=== PATIENT | female | born 1990 | race African-American/Black ===

== ENCOUNTER 2018-03-08 12:57 | Inpatient (IN) | payer OTHER, MEDICAID ==
[2018-03-08 15:28] LABS: ADD MAN DIFF? NO
[2018-03-08 15:31] LABS: WHITE BLOOD COUNT 10.7 10^3/ul (4.8-10.8)
[2018-03-08 15:31] LABS: BASOPHILS % 0.4 % (0.0-2.0); EOSINOPHILS % 0.4 % (0.0-7.0); HEMATOCRIT 36.2 % (37.0-47.0); HEMOGLOBIN 11.8 g/dl (12.0-16.0); LYMPHOCYTES # 1.9 10^3/ul (0.8-2.9); LYMPHOCYTES % 17.3 % (15.0-51.0); MEAN CORPUSCULAR HEMOGLOBIN 27.3 pg (29.0-33.0); MEAN CORPUSCULAR HGB CONC 32.6 g/dl (32.0-37.0); MEAN CORPUSCULAR VOLUME 83.6 fl (82.0-101.0); MONOCYTE # 0.4 10^3/ul (0.3-0.9); MONOCYTES % 4.1 % (0.0-11.0); NEUTROPHIL # 8.3 10^3/ul (1.6-7.5); NEUTROPHILS % 77.2 % (39.0-77.0); PLATELET COUNT 232 10^3/UL (140-415); RED BLOOD COUNT 4.33 10^6/ul (4.20-5.40); RED CELL DISTRIBUTION WIDTH 13.7 % (11.5-14.5)
[2018-03-08 15:49] LABS: ALANINE AMINOTRANSFERASE 20 IU/L (13-69); ALBUMIN 3.4 g/dl (3.3-4.9); ALBUMIN/GLOBULIN RATIO 1.03; ALKALINE PHOSPHATASE 155 IU/L (42-121); ANION GAP 12 (8-16); ASPARTATE AMINO TRANSFERASE 12 IU/L (15-46); BILIRUBIN,INDIRECT 0.1 mg/dl (0-1.1); BILIRUBIN,TOTAL 0.1 mg/dl (0.2-1.3); BLOOD UREA NITROGEN 6 mg/dl (7-20); CALCIUM 9.1 mg/dl (8.4-10.2); CARBON DIOXIDE 23 mmol/L (21-31); CHLORIDE 108 mmol/L (97-110); CREATININE 0.77 mg/dl (0.44-1.00); GLUCOSE 73 mg/dl (70-220); SODIUM 139 mmol/L (135-144); TOTAL PROTEIN 6.7 g/dl (6.1-8.1); URIC ACID 6.3 mg/dl (3.1-7.9)
[2018-03-08 16:11] LABS: ADD UMIC YES; UR ASCORBIC ACID NEGATIVE (NEGATIVE); UR BILIRUBIN (Dip) NEGATIVE (NEGATIVE); UR BLOOD (Dip) NEGATIVE (NEGATIVE); UR CLARITY CLEAR (CLEAR); UR COLOR STRAW (YELLOW); UR GLUCOSE (Dip) NEGATIVE (NEGATIVE); UR KETONES (Dip) NEGATIVE (NEGATIVE); UR LEUKOCYTE ESTERASE (Dip) 2+ Leu/ul (NEGATIVE); UR NITRITE (Dip) NEGATIVE (NEGATIVE); UR RBC 0 /HPF (0-5); UR SPECIFIC GRAVITY (Dip) 1.005 (1.003-1.030); UR SQUAMOUS EPITHELIAL CELL FEW /HPF (FEW); UR TOTAL PROTEIN (Dip) NEGATIVE (NEGATIVE); UR UROBILINOGEN (Dip) NEGATIVE (NEGATIVE); UR WBC 2 /HPF (0-5)
[2018-03-08] MEDS ORDERED: METHYLERGONOVINE 0.2 MG INJ IM (19:00)
[2018-03-08] MEDS ORDERED: CARBOPROST 250 MCG INJ IM (19:00)
[2018-03-08] MEDS ORDERED: MISOPROSTOL 200 MCG TAB PR (19:00)
[2018-03-08] MEDS ORDERED: OXYTOCIN 30 UNITS/LR 500 ML IV (19:00)
[2018-03-08] MEDS: LACTATED RINGER'S 1,000 ML IV ×2 (19:06→20:49)
[2018-03-08 19:26] LABS: HEPATITIS B SURFACE ANTIGEN NEGATIVE (NEGATIVE)
[2018-03-08 19:45] LABS: HIV 1&2 ANTIBODY NEGATIVE (NEGATIVE)
[2018-03-08] MEDS: MAGNESIUM SULFATE 3 GM in DEXTROSE 5% 100 ML IVPB (20:49)
[2018-03-08] MEDS: MAGNESIUM SULFATE 20 GM/500 ML 500 ML IV (21:29)
[2018-03-09] MEDS: LACTATED RINGER'S 1,000 ML IV ×3 (07:05→19:45)
[2018-03-09 07:42] LABS: MAGNESIUM 3.6 mg/dl (1.7-2.5)
[2018-03-09 09:23] LABS: INR 0.94; PROTIME 12.7 Sec (11.9-14.9)
[2018-03-09 09:24] LABS: PARTIAL THROMBOPLASTIN TIME 30.3 Sec (25.0-35.0)
[2018-03-09 10:34] LABS: AMPHETAMINE/METHAMPHETAMINE Negative (NEGATIVE); BARBITURATES Negative (NEGATIVE); BENZODIAZEPINES Negative (NEGATIVE); CANNABINOIDS Negative (NEGATIVE); COCAINE Negative (NEGATIVE); OPIATES Negative (NEGATIVE)
[2018-03-09] MEDS ORDERED: EPHEDrine SULFATE 50 MG/5 ML SYG (12:28)
[2018-03-09] MEDS ORDERED: FENTAnyl 50 MCG/ML VIAL (12:29)
[2018-03-09] MEDS ORDERED: morphine SULFATE/PF (10 MG/10 ML) INJ (12:29)
[2018-03-09] MEDS ORDERED: BUPIVACAINE 0.75%/DEXT (SPINAL) 2 ML INJ (13:24)
[2018-03-09] MEDS ORDERED: PHENYLephrine (100 MCG/ML) 5ML SYG (13:31)
[2018-03-09] MEDS ORDERED: ONDANSETRON 4 MG INJ (13:33)
[2018-03-09] MEDS ORDERED: DEXAMETHASONE 4 MG/ML 1 ML INJ (13:33)
[2018-03-09] MEDS ORDERED: METHYLENE BLUE 1% 10 ML INJ (14:08)
[2018-03-09] MEDS: METHYLENE BLUE 1% 10 ML INJ TOP (14:30)
[2018-03-09 14:58] LABS: RAPID PLASMA REAGIN NONREACTIVE (NR)
[2018-03-09] MEDS ORDERED: ONDANSETRON 4 MG INJ IV (15:00)
[2018-03-09] MEDS ORDERED: ZOLPIDEM 5 MG TAB PO (15:00)
[2018-03-09] MEDS ORDERED: HYDROmorphONE 0.5 MG/0.5 ML SYG IV (15:00)
[2018-03-09] MEDS ORDERED: NALOXONE (0.4 MG/ML) INJ IV (15:00)
[2018-03-09] MEDS: CEFAZOLIN 2 GM/50 ML (PMX) 50 ML IV ×2 (15:17→21:41)
[2018-03-09] MEDS: HYDROmorphONE 0.5 MG/0.5 ML SYG IV (15:23)
[2018-03-09] MEDS: AZITHROMYCIN 500MG/NS (PMX) 250 ML IVPB (16:12)
[2018-03-09] MEDS: LABETALOL 200 MG TAB PO ×2 (16:12→22:01)
[2018-03-09] MEDS: OXYTOCIN 30 UNITS/LR 500 ML IV (17:27)
[2018-03-09] MEDS: LABETALOL HCL 20MG INJ IV (17:49)
[2018-03-09 19:54] LABS: MAGNESIUM 3.4 mg/dl (1.7-2.5)
[2018-03-09] MEDS ORDERED: OXYTOCIN 30 UNITS/LR 500 ML IV (20:00)
[2018-03-09] MEDS ORDERED: CARBOPROST 250 MCG INJ IM (20:00)
[2018-03-09] MEDS ORDERED: MISOPROSTOL 200 MCG TAB PR (20:00)
[2018-03-09] MEDS ORDERED: HYDROCODONE/APAP (5/325) TAB PO (20:00)
[2018-03-09] MEDS ORDERED: METHYLERGONOVINE 0.2 MG INJ IM (20:00)
[2018-03-09] MEDS: MAGNESIUM SULFATE 20 GM/500 ML 500 ML IV (20:57)
[2018-03-09] MEDS ORDERED: metFORMIN (XR) 500 MG TAB PO (21:00)
[2018-03-09] MEDS: SENNA/DOCUSATE NA (8.6MG/50MG) TAB PO (21:00)
[2018-03-09] MEDS: ACCU-CHEK XX (21:34)
[2018-03-09] MEDS: IBUPROFEN 800 MG TAB PO (22:00)
[2018-03-09] MEDS: NITROFURANTOIN (SR) 100 MG CAP PO (22:04)
[2018-03-10] MEDS: LACTATED RINGER'S 1,000 ML IV ×3 (00:27→20:00)
[2018-03-10] MEDS: CLINDAMYCIN 300 MG CAP PO ×4 (00:51→18:16)
[2018-03-10 01:22] LABS: MAGNESIUM 3.5 mg/dl (1.7-2.5)
[2018-03-10] MEDS: CEFAZOLIN 2 GM/50 ML (PMX) 50 ML IV ×2 (04:42→12:52)
[2018-03-10] MEDS: DIPHENHYDRAMINE 50 MG INJ IV (04:42)
[2018-03-10] MEDS: IBUPROFEN 800 MG TAB PO ×3 (06:00→21:50)
[2018-03-10] MEDS: ACCU-CHEK XX ×2 (08:22→15:08)
[2018-03-10 08:32] LABS: ADD MAN DIFF? NO
[2018-03-10 08:35] LABS: WHITE BLOOD COUNT 15.6 10^3/ul (4.8-10.8)
[2018-03-10 08:35] LABS: BASOPHILS % 0.1 % (0.0-2.0); HEMATOCRIT 29.9 % (37.0-47.0); HEMOGLOBIN 9.9 g/dl (12.0-16.0); LYMPHOCYTES # 1.5 10^3/ul (0.8-2.9); LYMPHOCYTES % 9.5 % (15.0-51.0); MEAN CORPUSCULAR HGB CONC 33.1 g/dl (32.0-37.0); MEAN CORPUSCULAR VOLUME 84.5 fl (82.0-101.0); MEAN PLATELET VOLUME 10.9 fl (7.4-10.4); MONOCYTE # 0.9 10^3/ul (0.3-0.9); NEUTROPHILS % 83.9 % (39.0-77.0); PLATELET COUNT 206 10^3/UL (140-415); RED BLOOD COUNT 3.54 10^6/ul (4.20-5.40); RED CELL DISTRIBUTION WIDTH 14.1 % (11.5-14.5)
[2018-03-10] MEDS: SENNA/DOCUSATE NA (8.6MG/50MG) TAB PO ×2 (08:48→21:50)
[2018-03-10] MEDS: LABETALOL 200 MG TAB PO ×2 (08:48→21:51)
[2018-03-10] MEDS: NITROFURANTOIN (SR) 100 MG CAP PO ×2 (08:48→21:50)
[2018-03-10 08:56] LABS: MAGNESIUM 3.7 mg/dl (1.7-2.5)
[2018-03-10] MEDS: metFORMIN (XR) 500 MG TAB PO ×2 (09:19→18:30)
[2018-03-10 10:17] LABS: RUBELLA ANTIBODY - IGG 1.78 index
[2018-03-10] MEDS: HYDROmorphONE 0.5 MG/0.5 ML SYG IV ×2 (12:44→15:48)
[2018-03-10] MEDS: OXYCODONE/ACETAMINOPHEN (5/325) TAB PO (19:01)
[2018-03-10] MEDS: MAGNESIUM SULFATE 20 GM/500 ML 500 ML IV (20:00)
[2018-03-11] MEDS: LACTATED RINGER'S 1,000 ML IV (03:22)
[2018-03-11] MEDS: IBUPROFEN 800 MG TAB PO ×3 (06:51→21:35)
[2018-03-11] MEDS: CLINDAMYCIN 300 MG CAP PO ×4 (06:51→17:53)
[2018-03-11] MEDS: metFORMIN (XR) 500 MG TAB PO ×2 (08:27→18:37)
[2018-03-11 08:32] LABS: ADD MAN DIFF? NO
[2018-03-11 08:43] LABS: WHITE BLOOD COUNT 11.4 10^3/ul (4.8-10.8)
[2018-03-11 08:43] LABS: BASOPHILS % 0.3 % (0.0-2.0); EOSINOPHILS % 0.3 % (0.0-7.0); HEMATOCRIT 29.8 % (37.0-47.0); HEMOGLOBIN 9.8 g/dl (12.0-16.0); LYMPHOCYTES # 1.3 10^3/ul (0.8-2.9); LYMPHOCYTES % 11.6 % (15.0-51.0); MEAN CORPUSCULAR HEMOGLOBIN 27.7 pg (29.0-33.0); MEAN CORPUSCULAR HGB CONC 32.9 g/dl (32.0-37.0); MEAN CORPUSCULAR VOLUME 84.2 fl (82.0-101.0); MEAN PLATELET VOLUME 10.7 fl (7.4-10.4); MONOCYTE # 0.6 10^3/ul (0.3-0.9); MONOCYTES % 5.1 % (0.0-11.0); NEUTROPHIL # 9.4 10^3/ul (1.6-7.5); NEUTROPHILS % 82.3 % (39.0-77.0); PLATELET COUNT 187 10^3/UL (140-415); RED BLOOD COUNT 3.54 10^6/ul (4.20-5.40); RED CELL DISTRIBUTION WIDTH 13.8 % (11.5-14.5)
[2018-03-11] MEDS: NITROFURANTOIN (SR) 100 MG CAP PO ×2 (08:53→21:04)
[2018-03-11] MEDS: SENNA/DOCUSATE NA (8.6MG/50MG) TAB PO ×2 (08:54→21:00)
[2018-03-11] MEDS: LABETALOL 200 MG TAB PO ×3 (09:24→21:04)
[2018-03-11] MEDS: ACCU-CHEK XX ×6 (10:53→20:05)
[2018-03-11] MEDS: LANOLIN 7 GM TUBE TOP (10:54)
[2018-03-11] MEDS: NA PHOSPHATE/BIPHOS 133 ML ENEMA PR (11:04)
[2018-03-11] MEDS: BISACODYL 10 MG SUPP PR (12:10)
[2018-03-11] MEDS: MEASLES,MUMPS,RUBELLA VACCINE INJ SC* (12:13)
[2018-03-12] MEDS: CLINDAMYCIN 300 MG CAP PO ×3 (00:10→12:21)
[2018-03-12] MEDS: IBUPROFEN 800 MG TAB PO ×2 (06:00→13:43)
[2018-03-12] MEDS: ACCU-CHEK XX ×2 (07:30→10:05)
[2018-03-12] MEDS: metFORMIN (XR) 500 MG TAB PO (08:23)
[2018-03-12] MEDS: NITROFURANTOIN (SR) 100 MG CAP PO (08:23)
[2018-03-12] MEDS: LABETALOL 200 MG TAB PO (08:25)
[2018-03-12] MEDS: SENNA/DOCUSATE NA (8.6MG/50MG) TAB PO (08:25)
[2018-03-12] MEDS ORDERED: DIPHTH/TET/ACEL PERTUSS (ADULT) 0.5 ML VIAL IM* (09:00)
[2018-03-12 09:58] LABS: ADD MAN DIFF? NO
[2018-03-12 10:03] LABS: BASOPHIL # 0.1 10^3/ul (0.0-0.1); BASOPHILS % 0.5 % (0.0-2.0); EOSINOPHILS # 0.1 10^3/ul (0.0-0.5); EOSINOPHILS % 0.8 % (0.0-7.0); HEMATOCRIT 30.5 % (37.0-47.0); HEMOGLOBIN 9.7 g/dl (12.0-16.0); LYMPHOCYTES # 1.6 10^3/ul (0.8-2.9); LYMPHOCYTES % 14.5 % (15.0-51.0); MEAN CORPUSCULAR HEMOGLOBIN 27.3 pg (29.0-33.0); MEAN CORPUSCULAR HGB CONC 31.8 g/dl (32.0-37.0); MEAN CORPUSCULAR VOLUME 85.9 fl (82.0-101.0); MEAN PLATELET VOLUME 10.4 fl (7.4-10.4); MONOCYTE # 0.6 10^3/ul (0.3-0.9); MONOCYTES % 5.7 % (0.0-11.0); NEUTROPHIL # 8.3 10^3/ul (1.6-7.5); NEUTROPHILS % 77.8 % (39.0-77.0); PLATELET COUNT 209 10^3/UL (140-415); RED BLOOD COUNT 3.55 10^6/ul (4.20-5.40); RED CELL DISTRIBUTION WIDTH 13.9 % (11.5-14.5)
[2018-03-12 10:03] LABS: WHITE BLOOD COUNT 10.7 10^3/ul (4.8-10.8)
[2018-03-13] MEDS ORDERED: NITROFURANTOIN (SR) 100 MG CAP PO (09:00)
[2018-03-13 11:11] LABS: RUBELLA ANTIBODY - IGM <20.00 AU/mL
== END 2018-03-12 18:10 | disposition home or self-care (01) | DRG 765 ==
LOC: OBT 12:57 → L-D 12:59 → PP1 03-09 18:21 → OBT 18:28 → L-D 18:28
PROC: 10D00Z1 Extraction of Products of Conception, Low, Open Approach (ICD-10-PCS; principal; 2018-03-09 12:30)
PROC: 0TQB0ZZ Repair Bladder, Open Approach (ICD-10-PCS; 2018-03-09 12:30)
DX: O34.219 Maternal care for unspecified type scar from previous cesarean delivery (principal); O71.5 Other obstetric injury to pelvic organs; Z37.0 Single live birth; Z3A.37 37 weeks gestation of pregnancy; O24.92 Unspecified diabetes mellitus in childbirth; O16.4 Unspecified maternal hypertension, complicating childbirth
CPT/HCPCS: 62319; 76815; 76818; 80053; 80307; 81001; 82962; 83735; 84560; 85025; 85610; 85730; 86592; 86703; 86762; 86850; 86900; 86901; 87340; 99464